=== PATIENT | female | born 1985 | race Hispanic/Latino ===

== ENCOUNTER 2017-03-10 18:25 | Emergency (ER) | payer OTHER ==
[2017-03-10] MEDS ORDERED: Sodium Chloride 0.9% 1,000 ML IV STA (19:18)
--- NOTE | 2017-03-10 19:46 | ED PDOC ---
HPI: Abdomen Time Seen by Provider: 03/10/17 19:01 Chief Complaint (Nursing): GI Problem Chief Complaint (Provider): GI Bleed History Per: Patient History/Exam Limitations: no limitations Onset/Duration Of Symptoms: Persistent Outside of [place] travel?: No Current Symptoms Are (Timing): Still Present Additional Complaint(s): The pt is a 31yo female with longstanding hx of GI bleed, on going for 5 years. Pt reports she was evaluated by a GI at [facility] 3yrs ago and had an endoscopy and colonoscopy done with normal results. States for past weeks, shes been having intermittent GI bleeding up to 5 episodes of bright red blood intermixed with dark stools. Pt reports shes been feeling symptomatic light headedness and dizziness. Per pt's partner, the pt had syncopal episode few days ago at home. Denies any chest pain, shortness of breath and at present denies abdominal pain. Offers no additional medical complaints. Past Medical History Reviewed: Historical Data, Nursing Documentation, Vital Signs Vital Signs: Last Vital Signs Temp 99.1 F 03/10/17 18:40 Pulse 102 H 03/10/17 18:40 Resp 18 03/10/17 18:40 BP 125/67 03/10/17 18:40 Pulse Ox 99 03/10/17 21:15 - Medical History PMH: No Chronic Diseases - Surgical History Surgical History: No Surg Hx - Family History Family History: States: Unknown Family Hx - Immunization History Hx Tetanus Toxoid Vaccination: No Hx Influenza Vaccination: Yes Hx Pneumococcal Vaccination: No - Home Medications Home Medications: Ambulatory Orders Medication Instructions Recorded Cephalexin [cephalexin] 500 mg PO Q6 #28 cap 06/21/16 Ibuprofen [Motrin] 600 mg PO Q6 #30 tab 06/21/16 Norgestimate-Ethinyl Estradiol 1 tab PO DAILY 06/21/16 [[place] 35 Mcg-0.25 mg] Sulfamethoxazole/Trimethoprim 1 tab PO BID #14 tab 06/21/16 [Bactrim DS 800 mg-160 mg] Ferrous Sulfate [Iron] 325 mg PO DAILY #30 capsule.er 03/10/17 Omeprazole 20 mg PO DAILY #30 capsule. 03/10/17 - Allergies Allergies/Adverse Reactions: Allergies Allergy/AdvReac Type Severity Reaction Status Date / Time No Known Allergies Allergy Verified 06/21/16 01:41 Review of Systems ROS Statement: Except As Marked, All Systems Reviewed And Found Negative Cardiovascular: Positive for: Light Headedness. Negative for: Chest Pain Respiratory: Negative for: Shortness of Breath Gastrointestinal: Positive for: Melena, Hematochezia. Negative for: Abdominal Pain Physical Exam - Reviewed Nursing Documentation Reviewed: Yes Vital Signs Reviewed: Yes - Physical Exam Appears: Positive for: Well, Non-toxic, No Acute Distress Head Exam: Positive for: ATRAUMATIC, NORMAL INSPECTION, NORMOCEPHALIC Skin: Positive for: Warm, Pallor Eye Exam: Positive for: Normal appearance Neck: Positive for: Normal Cardiovascular/Chest: Positive for: Regular Rate, Rhythm Respiratory: Negative for: Respiratory Distress Gastrointestinal/Abdominal: Positive for: Soft, Tenderness (right mid and lower abdomen tenderness; pt reports is chronic) Neurologic/Psych: Positive for: Alert, Oriented - Laboratory Results Result Diagrams: 03/10/17 19:25 03/10/17 19:25 - ECG O2 Sat by Pulse Oximetry: 99 (RA) Pulse Ox Interpretation: Normal Medical Decision Making Medical Decision Making: Time: 1909 Impression: Lower GI Bleed Plan: -- Type and screen -- BMP -- CBC -- IV Fluids -- Urine dipstick -- UPreg Reassess Time: 2113 Patient stable for discharge home. Will follow up with Dr. Gifford and her PCP. Told to return to ED if she feels worsening weakness, bleeding, sycnope, or other concerning symptoms. Scribe Attestation: Documented by Zoe Nunez acting as a scribe for Car Kapoor MD. Provider Attestation: All medical record entries made by the Scribe were at my direction and personally dictated by me. I have reviewed the chart and agree that the record accurately reflects my personal performance of the history, physical exam, medical decision making, and the department course for this patient. I have also personally directed, reviewed, and agree with the discharge instructions and disposition. Disposition - Clinical Impression Clinical Impression: Anemia, Rectal bleeding - Disposition Referrals: [facility] [Outside] Adrian Gifford MD [Staff Provider] - Disposition: Routine/Home Disposition Time: 21:15 Condition: STABLE Prescriptions: Ferrous Sulfate [Iron] 325 mg PO DAILY #30 capsule.er Omeprazole 20 mg PO DAILY #30 capsule. Instructions: Iron Supplements (By mouth), Gastrointestinal Bleeding (ED), Rectal Bleeding (ED) Forms: DICOM Grid ([place]ian)
[2017-03-10 19:49] LABS: BASO # 0.1 K/uL (0.0-0.2); BASO % 0.7 % (0.0-2.0); EOS # 0.2 K/uL (0.0-0.7); EOS % 1.7 % (0.0-4.0); LYMPH % 31.2 % (20.0-40.0); MEAN CELL VOLUME 89.2 fl (81.0-99.0); MEAN CORPUSCULAR HEMOGLOBIN 29.3 pg (27.0-31.0); MEAN CORPUSCULAR HGB CONC 32.8 g/dL (33.0-37.0); MEAN PLATELET VOLUME 7.4 fl (7.2-11.7); MONO # 0.5 K/uL (0.0-0.8); MONO % 5.1 % (0.0-10.0); NEUT # 5.9 K/uL (1.8-7.0); NEUT % 61.3 % (50.0-75.0); RBC 3.09 Mil/uL (3.80-5.20); RED CELL DISTRIBUTION WIDTH 15.4 % (11.5-14.5); WHITE BLOOD COUNT 9.6 K/uL (4.8-10.8)
[2017-03-10 20:40] LABS: BLOOD UREA NITROGEN 14 mg/dl (7-17); CALCIUM 9.1 mg/dL (8.4-10.2); GFR AFRICAN-AMERICAN > 60; GFR NON-AFRICAN AMERICAN > 60
[2017-03-10 21:23] VITALS: BP 112/68; PULSE 90; RESP 16; TEMP 98.2; O2SAT 98
== END 2017-03-10 21:20 | disposition home or self-care (01) ==
LOC: H.ER 18:25
DX: D64.9 Anemia, unspecified (principal); K92.2 Gastrointestinal hemorrhage, unspecified